=== PATIENT | male | born 1950 | race Caucasian/White ===

== ENCOUNTER 2016-10-14 11:45 | Observation (INO) | payer MEDICARE, OTHER ==
[~2016-10-14 11:45] MED LIST: LISINOPRIL PO; ZOCOR40 M1 PO
[2016-10-14] MEDS ORDERED: METRONIDAZOLE45 G2 TP (11:50)
[2016-10-14] MEDS ORDERED: LISINOPRIL-HCT1 EAC1 PO (11:50)
[2016-10-14] MEDS ORDERED: VITAMIN D31000 UNI3 PO (11:51)
[2016-10-14] MEDS ORDERED: LOVAZA1 GM/CAP PO (11:51)
[2016-10-14 21:48] LABS: BASO % 0.3 % (0-2); EOS % 4.9 % (0-7); EOSINOPHIL ABSOLUTE COUNT 0.3 tho/cmm (0.0-0.7); HGB-HEMOGLOBIN 15.6 gm/dl (13.5-17.0); IMMATURE GRANULOCYTES ABSOLUTE 0.02 tho/cmm (0-0.03); IMMATURE GRANULOCYTES PERCENT 0.3 % (0-0.3); LYMPH % 27.4 % (20-45); LYMPH ABSOLUTE COUNT 1.9 tho/cmm (0.8-4.5); MCH (MEAN CORPUSCULAR HGB) 28.2 pg (28.0-32.0); MCHC MEAN CORPUSCULAR HGB CONC 33.9 % (32.0-36.0); MCV (MEAN CELL VOLUME) 83.2 fl (82.0-96.0); MEAN PLATELET VOLUME 9.4 cmc (9.4-12.4); MONO % 11.2 % (0-12); MONOCYTE ABSOLUTE COUNT 0.8 tho/cmm (0.0-1.2); NEUTROPHIL ABSOLUTE COUNT 3.9 tho/cmm (1.6-8.0); NEUTROPHIL-AUTOMATED 3.9 tho/cmm (1.6-8.0); NEUTROPHILS % 55.9 % (40-80); PLATELET COUNT 232 tho/cmm (150-450); RED BLOOD COUNT 5.53 mil/cmm (4.40-5.70); RED CELL DISTRIBUTION WIDTH 14.9 % (12.4-16.4)
[2016-10-15 05:19] LABS: BLOOD UREA NITROGEN 14 mg/dl (6-24); CALCIUM 9.2 mg/dl (8.5-10.5); CARBON DIOXIDE-VENOUS 30 mmol/L (22-32); CHLORIDE 106 mmol/l (96-110); CHOLESTEROL 136 mg/dl (120-200); CREATININE 1.24 mg/dl (0.60-1.30); GLUCOSE 84 mg/dL (70-110); HDL CHOLESTEROL 36 mg/dl (40-60); LDL CHOLESTEROL 56 mg/dl (0-99); SODIUM 141 mmol/L (135-145); VLDL 44 mg/dl (0-30); eGFR VALUE FOR BLACK 69 mL/Min
[2016-10-15 05:23] LABS: ANION GAP 9 mmol/L (0-20); POTASSIUM 4.4 mmol/L (3.7-5.1); TRIGLYCERIDES 222 mg/dl (<149)
== END 2016-10-15 13:00 | disposition other institution (70) ==
LOC: EDMED 11:45 → EMR2 14:51 → PCUA 16:46
PROVIDERS: ADMIT Internal Medicine Cardiovascular Disease
PROC: B2111ZZ Fluoroscopy of Multiple Coronary Arteries using Low Osmolar Contrast (ICD-10-PCS; principal; 2016-10-15)
DX: I25.110 Atherosclerotic heart disease of native coronary artery with unstable angina pectoris (principal); I10 Essential (primary) hypertension; E78.5 Hyperlipidemia, unspecified; Z79.899 Other long term (current) drug therapy; Z88.8 Allergy status to other drugs, medicaments and biological substances; Z87.891 Personal history of nicotine dependence; Z80.1 Family history of malignant neoplasm of trachea, bronchus and lung; Z82.3 Family history of stroke; Z90.49 Acquired absence of other specified parts of digestive tract; Z98.890 Other specified postprocedural states
CPT/HCPCS: C1769; C1894; G0378; J1644; J2250; J3010; Q9967